=== PATIENT | female | born 1965 | race Caucasian/White ===

== ENCOUNTER → 2023-09-18 10:22 | Outpatient (CLI) | payer OTHER, SELFPAY ==
--- NOTE | 2023-09-18 10:24 | DI.RAD.S_ITS ---
PROCEDURE: XR KNEE LT 3V INDICATIONS: Left knee pain TECHNIQUE: 3 views of the knee were acquired. COMPARISON: None. FINDINGS: Bones: No fractures or dislocations. Mild tricompartmental osteoarthritis is seen more notably in patellofemoral compartment. Slight lateral subluxation of patella is also seen. No suspicious bony lesions. Soft tissues: Moderate suprapatellar joint effusion. No suspicious soft tissue calcifications. IMPRESSION: Mild tricompartmental osteoarthritis and mild lateral patellar subluxation. Moderate suprapatellar joint effusion. No fracture or dislocation. Dictated by: Hu Marino M.D. on 09/18/2023 at 11:51 Approved by: Hu Marino M.D. on 09/18/2023 at 11:52
== END ==
PROVIDERS: Referring Provider Nurse Practitioner Family; Visit Provider Nurse Practitioner Family
DX: S86.912A Strain of unspecified muscle(s) and tendon(s) at lower leg level, left leg, initial encounter (principal); M17.12 Unilateral primary osteoarthritis, left knee; S83.012A Lateral subluxation of left patella, initial encounter; X58.XXXA Exposure to other specified factors, initial encounter
CPT/HCPCS: 73562

== ENCOUNTER → 2024-05-28 15:26 | Outpatient (CLI) | payer OTHER, SELFPAY ==
--- NOTE | 2024-05-28 15:27 | DI.MRI.S_ITS ---
PROCEDURE: MR KNEE LT WO CON INDICATIONS: derangement of left knee TECHNIQUE: Noncontrast sagittal PD fast spin echo and T2 fast spin echo with fat saturation, sagittal 3-D FLASH with fat saturation; coronal T1 spin echo and PD fast spin echo with fat saturation, and axial PD fast spin echo with fat saturation through the knee. COMPARISON: [facility] [place], CR, XR KNEE 4+ VIEWS LEFT, 09/23/2023, 9:48. FINDINGS: Image quality: Excellent. Menisci: In the medial meniscus, there is likely a horizontal oblique tear of the meniscus body. No extrusion of the medial meniscus. In the lateral meniscus, there is a horizontal tear of the posterior horn, extending to the posterior root. There is marked extrusion of the lateral meniscus body with near maceration of the medial meniscus body and the anterior horn small parameniscal cyst about the anterior horn of the lateral meniscus, measuring 7 mm overall. Cruciate ligaments: The anterior and posterior cruciate ligaments appear intact. Medial structures: The medial collateral ligament appears intact. The posterior oblique ligament, semimembranosus tendon insertions, oblique popliteal ligament, and meniscocapsular junction appear intact. Visualized portions of the pes anserinus tendons appear normal. No abnormal bursal fluid. Lateral structures: The lateral collateral ligament, long and short heads of the biceps femoris tendon appear intact. The popliteus tendon appears normal; the popliteofibular ligament appears intact. The posterosuperior and anteroinferior popliteomeniscal fascicles appear intact. The arcuate and fabellofibular ligaments appear intact, on either side of the lateral inferior geniculate artery. Iliotibial band appears normal. Anterior structures: The quadriceps tendon is unremarkable. Mild tendinosis of the patellar tendon. Hoffa's fat pad edema. Marked lateral tilt of the patella. The medial and lateral patellofemoral ligaments are intact. Bones and cartilage: There is large area of full-thickness chondral denudation in the lateral patellar facet, with mild subchondral marrow edema. High-grade chondral loss in the median ridge, and high-grade chondral irregularity in the medial patellar facet, with mild subchondral marrow edema. There is small area of full-thickness chondral loss in the superior aspect of the lateral trochlea, with mild subchondral marrow edema. Cartilage of the medial compartment is grossly well maintained. In the lateral compartment, there is large area full-thickness chondral loss in the posterior weight-bearing portion of the lateral femoral condyle, with moderate subchondral marrow edema. There is high-grade chondral loss in the lateral tibial plateau, with mild subchondral marrow edema. Mild subchondral marrow edema with cystic changes at the tibial eminence, reactive. No acute fracture. Joint space: Moderate knee effusion with synovitis. Small popliteal cyst. Popliteal vasculature is unremarkable. No intra-articular body. IMPRESSION: 1. Likely tear of the medial meniscus. 2. Extensive tear of the lateral meniscus. 3. Moderate to severe chondrosis of the patellofemoral compartment, and severe chondrosis of the lateral compartment, with associated marrow edema. 4. Moderate knee effusion with synovitis. Dictated by: Dominga Sainz M.D. on 05/28/2024 at 17:18 Approved by: Dominga Sainz M.D. on 05/28/2024 at 17:29
== END ==
LOC: MRI 15:26
PROVIDERS: Referring Provider Orthopaedic Surgery Foot and Ankle Surgery; Visit Provider Orthopaedic Surgery Foot and Ankle Surgery
DX: S83.282A Other tear of lateral meniscus, current injury, left knee, initial encounter (principal); M22.42 Chondromalacia patellae, left knee; M25.462 Effusion, left knee; M65.98 Unspecified synovitis and tenosynovitis, other site; M71.22 Synovial cyst of popliteal space [Baker], left knee; M23.92 Unspecified internal derangement of left knee
CPT/HCPCS: 73721

== ENCOUNTER 2024-09-27 20:49 | Emergency (ER) | payer OTHER, SELFPAY ==
[2024-09-27 21:01] VITALS: BP 127/84; PULSE 94; RESP 18; TEMP 36.3; O2SAT 97; BMI 26.5
--- NOTE | 2024-09-27 21:37 | PC.NURSE ---
spoke with pt and pt's , pt wanted to go home stating she was just tired and wanted to get some rest. The fact that she was really going to need some sutures was stressed. pt stated she would return in the am for sutures. Discussed with pt and pt's the s/s of concussion and the need to return sooner for any problems. understanding was verbalized. pt stated she would return in the am. pt aao x 3 ambulates without difficulty
== END 2024-09-27 21:41 | disposition left against medical advice (07) ==
PROVIDERS: Emergency Provider Student in an Organized Health Care Education/Training Program
CPT/HCPCS: 99281

== ENCOUNTER 2024-09-28 10:12 | Emergency (ER) | payer OTHER, SELFPAY ==
[2024-09-28 10:15] VITALS: BP 195/100; PULSE 85; RESP 13; TEMP 36.8; O2SAT 99; BMI 26.5
--- NOTE | 2024-09-28 11:44 | ED_ITS ---
HPI - Fall General Chief Complaint: Fall Stated Complaint: Back for stitches on left eye Time Seen by Provider: 09/28/24 10:41 Source: patient Mode of arrival: Ambulatory History of Present Illness HPI Narrative: patient is a 59-year-old female presenting today after fall yesterday. Reports that she was at a social event had half a glass of wine stumbled and fell last night. She has a laceration above her left eye from her glasses. She was here last night but too many people and ultimate. Denies loss of consciousness blood thinners felt nauseous this morning but no vomiting. She was extremely shaky and has tremors today. Reports that she was extremely nervous. Says she at most drinks 3 glasses of wine couple days a week. Denies any history of alcohol withdrawal she reports that she was extremely nervous and anxious about pain. Has significant left periorbital contusion. Related Data Home Medications Medication Instructions Recorded Confirmed lisinopril 20 mg tablet 20 mg PO DAILY 09/26/24 09/26/24 Previous Rx's Medication Instructions Recorded sulfamethoxazole 800 1 tab PO BID 7 days #14 tabs 09/26/24 mg-trimethoprim 160 mg tablet (Bactrim DS) Allergies Allergy/AdvReac Type Severity Reaction Status Date / Time No Known Drug Allergies Allergy Verified 09/28/24 10:15 Patient History Social History Smoking Status: Unknown if ever smoked Smoking Status: Unknown if ever smoked Exam Initial Vital Signs Initial Vital Signs: Vital Signs Temperature 98.2 F 09/28/24 10:15 Pulse Rate 85 09/28/24 10:15 Respiratory Rate 13 09/28/24 10:15 Blood Pressure 195/100 H 09/28/24 10:15 Pulse Oximetry 99 09/28/24 10:15 Oxygen Delivery Method Room Air 09/28/24 10:15 GENERAL: Alert shaking 59-year-old female HEENT: Head atraumatic,EOMI, pupils reactive, significant left eye periorbital contusion swelling but able to open eye completely above left eye is a 3 cm laceration there was some gapping no active bleeding face symmetric, moist mucous membranes CARDIOVASCULAR: Regular rate and rhythm without murmurs, rubs or gallops. RESPIRATORY: Breath sounds equal bilaterally, no wheezes rales or rhonchi. ABDOMEN: Soft, nontender. Normoactive bowel sounds all 4 quadrants. No guarding or rebound. EXTREMITIES: Normal range of motion, no clubbing or edema. Neurovascularly intact NEUROLOGICAL: Alert and oriented x4.Normal gait and speech. Cranial nerves II through XII grossly intact. Resting tremor SKIN: Warm, dry, no laceration, no petechiae, no rashes or lesions. Procedures Laceration Repair Laceration 1: Site: face Side (If applicable): left Size (cm): 3 Description: linear Depth: simple, single layer Skin layer closed with: steri-strips Course Orders Ordered: ED Orders 09/28/24 11:49 CT cervical spine wo con Stat CT facial bones wo con Stat CT head/brain wo con Stat XR hip w pel if done RT 2V Stat Discontinued Medications Lorazepam (Lorazepam 0.5 Mg Tablet) 1 mg PO NOW ONE Stop: 09/28/24 11:50 Last Admin: 09/28/24 11:54 Dose: 1 mg Documented By: ANASTASIA Tetanus/Diphtheria Toxoids (Tetanus Diphtheria Toxoids 0.5 Ml Vial) 0.5 ml IM .ONCE ONE Stop: 09/28/24 12:51 Last Admin: 09/28/24 13:07 Dose: 0.5 ml Documented By: MELITON Vital Signs Vital signs: Vital Signs - 8 hr 09/28/24 10:15 09/28/24 12:21 09/28/24 12:22 Temperature 98.2 F Pulse Rate 85 74 Respiratory Rate 13 Blood Pressure 195/100 H 137/89 Pulse Oximetry 99 96 Oxygen Delivery Method Room Air 09/28/24 13:16 09/28/24 13:17 09/28/24 13:17 Temperature Pulse Rate 77 Respiratory Rate Blood Pressure 138/72 Pulse Oximetry 96 95 Oxygen Delivery Method Room Air Room Air MDM - Fall Imaging Data CT scan - head: Radiologist's Impression: PROCEDURE: CT HEAD/BRAIN WO CON INDICATIONS: fall last night TECHNIQUE: Noncontrast 4.5 mm thick angled axial sections acquired from the foramen magnum to the vertex, with coronal and sagittal reformats. For radiation dose reduction, the following was used: automated exposure control, adjustment of mA and/or kV according to patient size. COMPARISON: None. FINDINGS: Image quality: Diagnostic. CSF spaces: Basal cisterns are patent. No extra-axial fluid collections. The ventricles are symmetric in size and shape. Brain: No acute intracranial hemorrhage or mass effect. There is cerebral volume loss for age, with resultant ventricular and sulcal prominence. There are periventricular and deep white matter chronic small vessel ischemic changes. There is intracranial internal carotid artery atherosclerosis. Skull and face: Facial CT dictated separately. A few versus foci of subcutaneous gas are seen in the left supraorbital region possibly related to a laceration. Calvarium and visualized facial bones appear intact, without suspicious lesions. Sinuses: Visualized sinuses and mastoids are clear. IMPRESSION: 1. No acute intracranial pathology. 2. [id number] cranial air vascular ischemic changes and generalized parenchymal volume loss. Approved by: Niels Fernandez M.D. on 09/28/2024 at 12:32 CT - cervical spine: Radiologist's Impression: PROCEDURE: CT CERVICAL SPINE WO CON INDICATIONS: fall TECHNIQUE: Noncontrast 3 mm thick sections acquired from the skull base to the T4 level. Sagittal and coronal reformats were then constructed. For radiation dose reduction, the following was used: automated exposure control, adjustment of mA and/or kV according to patient size. COMPARISON: None. FINDINGS: Image quality: Excellent. Bones: No acute fractures or dislocations. Visualized superior ribs are intact. Straightening of the normal cervical lordosis. Grade 1 anterolisthesis at C2-3 and C3-4. Multilevel disc space narrowing and degenerative endplate changes. Multilevel uncovertebral joint and facet hypertrophy. Soft tissues: Prevertebral soft tissues are normal in thickness. No paravertebral hematomas. No apical pneumothoraces. IMPRESSION: No acute displaced fracture or traumatic subluxation. Approved by: Niels Fernandez M.D. on 09/28/2024 at 12:38 ct facial: Radiologist's Impression: PROCEDURE: CT FACIAL BONES WO CON INDICATIONS: fall left periorbital contusion TECHNIQUE: Noncontrast 2.5 mm thick axial images acquired from the mandible through the frontal sinuses, with coronal and sagittal reformatting. For radiation dose reduction, the following was used: automated exposure control, adjustment of mA and/or kV according to patient size. COMPARISON: None. FINDINGS: Image quality: Excellent. Bones and teeth: Mild displaced fracture of the inferior left orbital wall measuring approximately 13 x 14 mm with up to 3 mm depression. No entrapment of the inferior rectus muscle is seen. Orbital chan are intact. Sinus chan show no fracture or deformity. Nasal bones and septum are intact. Visualized portions of the mandible demonstrate no fractures or subluxation. Zygomatic arches are intact. Pterygoid plates are intact. Visualized portions of the skull base and auditory canals are intact. Sinuses: Mild mucosal thickening and fluid in the left maxillary sinus. The remaining paranasal sinuses and the mastoid air cells are clear. Soft tissues: Soft tissue edema in the left periorbital region. A few foci of gas are seen. No orbital hematoma. No enlarged lymph nodes. No soft tissue lacerations or debris. Vascular: Visualized vascular structures appear normal in the absence of contrast. Bony vascular foramina and canals are intact. IMPRESSION: Mildly depressed fracture of the left inferior orbital wall. No inferior rectus muscle entrapment is seen. No additional facial fracture. Approved by: Niels Fernandez M.D. on 09/28/2024 at 12:37 Extremity x-ray #1: Radiologist's Impression: PROCEDURE: XR HIP W PEL IF DONE RT 2V INDICATIONS: pain fall TECHNIQUE: AP pelvis with lateral view of the right hip. COMPARISON: None. FINDINGS: Bones: No acute fractures or dislocations. Pelvic ring appears intact. No suspicious bony lesions. Soft tissues: The visualized bowel gas pattern is normal. No suspicious soft tissue calcifications. IMPRESSION: No acute osseous abnormality. If symptoms persist or if there is continued clinical concern, cross-sectional imaging such as MRI or CT may be helpful for further evaluation. Approved by: Niels Fernandez M.D. on 09/28/2024 at 12:29 MDM Narrative Medical decision making narrative: Patient is 59-year-old female who presents today after ground level fall last evening. She has a obvious soft eyebrow laceration. It has been open now for greater than 12 hours. At this time we will not suture it but it was Steri- Strips with Mastisol.. Imaging does show mildly depressed fracture of left inferior orbital wall no evidence of entrapment on exam or on CT. She was extremely shaky I do have concerns about alcohol withdrawal. She was adamant that she is only nervous. She was given 1 mg of Ativan p.o. with her nerves. She reports that it does help in the shaking did not begin again until she was to receive her tetanus shot. I discussed at length with her about risk of alcohol withdrawal seizures and recommended detox however she is adamant it was not alcohol withdrawal. It she feels ready able to go. Stable gait. Discharge Plan Departure Patient Disposition: Home Clinical Impression: Orbital floor (blow-out), closed fracture, Laceration of eyebrow, left Instructions: DI for Laceration Repair-Skin Closure Strips, DI for Orbital Fracture Activity Restrictions/Additional Instructions: *You have been diagnosed with orbital fracture *What to do: At this time do not blow your nose, dab only. you will need to follow up with ENT, should heal easily on its own *Continue to take medications as directed *Follow up with your primary care provider in 2-3 days or call [phone] *Return to ER if you should have redness swelling drainage blurry vision increasing shaking [or] any new, worsening or concerning symptoms Prescriptions: No Action lisinopril 20 mg tablet 20 mg PO DAILY sulfamethoxazole-trimethoprim [Bactrim DS] 800-160 mg tablet 1 tab PO BID 7 Days Qty: 14 0RF Referrals: Renato Ferrell MD [Physician] - Stand Alone Forms: Patient Portal/API/Survey
--- NOTE | 2024-09-28 11:49 | DI.CT.S_ITS ---
PROCEDURE: CT FACIAL BONES WO CON INDICATIONS: fall left periorbital contusion TECHNIQUE: Noncontrast 2.5 mm thick axial images acquired from the mandible through the frontal sinuses, with coronal and sagittal reformatting. For radiation dose reduction, the following was used: automated exposure control, adjustment of mA and/or kV according to patient size. COMPARISON: None. FINDINGS: Image quality: Excellent. Bones and teeth: Mild displaced fracture of the inferior left orbital wall measuring approximately 13 x 14 mm with up to 3 mm depression. No entrapment of the inferior rectus muscle is seen. Orbital chan are intact. Sinus chan show no fracture or deformity. Nasal bones and septum are intact. Visualized portions of the mandible demonstrate no fractures or subluxation. Zygomatic arches are intact. Pterygoid plates are intact. Visualized portions of the skull base and auditory canals are intact. Sinuses: Mild mucosal thickening and fluid in the left maxillary sinus. The remaining paranasal sinuses and the mastoid air cells are clear. Soft tissues: Soft tissue edema in the left periorbital region. A few foci of gas are seen. No orbital hematoma. No enlarged lymph nodes. No soft tissue lacerations or debris. Vascular: Visualized vascular structures appear normal in the absence of contrast. Bony vascular foramina and canals are intact. IMPRESSION: Mildly depressed fracture of the left inferior orbital wall. No inferior rectus muscle entrapment is seen. No additional facial fracture. Approved by: Niels Fernandez M.D. on 09/28/2024 at 12:37
--- NOTE | 2024-09-28 11:49 | DI.CT.S_ITS ---
PROCEDURE: CT CERVICAL SPINE WO CON INDICATIONS: fall TECHNIQUE: Noncontrast 3 mm thick sections acquired from the skull base to the T4 level. Sagittal and coronal reformats were then constructed. For radiation dose reduction, the following was used: automated exposure control, adjustment of mA and/or kV according to patient size. COMPARISON: None. FINDINGS: Image quality: Excellent. Bones: No acute fractures or dislocations. Visualized superior ribs are intact. Straightening of the normal cervical lordosis. Grade 1 anterolisthesis at C2-3 and C3-4. Multilevel disc space narrowing and degenerative endplate changes. Multilevel uncovertebral joint and facet hypertrophy. Soft tissues: Prevertebral soft tissues are normal in thickness. No paravertebral hematomas. No apical pneumothoraces. IMPRESSION: No acute displaced fracture or traumatic subluxation. Approved by: Niels Fernandez M.D. on 09/28/2024 at 12:38
--- NOTE | 2024-09-28 11:49 | DI.CT.S_ITS ---
PROCEDURE: CT HEAD/BRAIN WO CON INDICATIONS: fall last night TECHNIQUE: Noncontrast 4.5 mm thick angled axial sections acquired from the foramen magnum to the vertex, with coronal and sagittal reformats. For radiation dose reduction, the following was used: automated exposure control, adjustment of mA and/or kV according to patient size. COMPARISON: None. FINDINGS: Image quality: Diagnostic. CSF spaces: Basal cisterns are patent. No extra-axial fluid collections. The ventricles are symmetric in size and shape. Brain: No acute intracranial hemorrhage or mass effect. There is cerebral volume loss for age, with resultant ventricular and sulcal prominence. There are periventricular and deep white matter chronic small vessel ischemic changes. There is intracranial internal carotid artery atherosclerosis. Skull and face: Facial CT dictated separately. A few versus foci of subcutaneous gas are seen in the left supraorbital region possibly related to a laceration. Calvarium and visualized facial bones appear intact, without suspicious lesions. Sinuses: Visualized sinuses and mastoids are clear. IMPRESSION: 1. No acute intracranial pathology. 2. [id number] cranial air vascular ischemic changes and generalized parenchymal volume loss. Approved by: Niels Fernandez M.D. on 09/28/2024 at 12:32
--- NOTE | 2024-09-28 11:49 | DI.RAD.S_ITS ---
PROCEDURE: XR HIP W PEL IF DONE RT 2V INDICATIONS: pain fall TECHNIQUE: AP pelvis with lateral view of the right hip. COMPARISON: None. FINDINGS: Bones: No acute fractures or dislocations. Pelvic ring appears intact. No suspicious bony lesions. Soft tissues: The visualized bowel gas pattern is normal. No suspicious soft tissue calcifications. IMPRESSION: No acute osseous abnormality. If symptoms persist or if there is continued clinical concern, cross-sectional imaging such as MRI or CT may be helpful for further evaluation. Approved by: Niels Fernandez M.D. on 09/28/2024 at 12:29
[2024-09-28] MEDS: LORazepam 0.5 MG TABLET 1 MG PO (11:54)
[2024-09-28 12:21] VITALS: PULSE 74; O2SAT 96
[2024-09-28 12:22] VITALS: BP 137/89
[2024-09-28] MEDS: TETANUS DIPHTHERIA TOXOIDS 0.5 ML VIAL IM (13:07)
[2024-09-28 13:16] VITALS: O2SAT 96
[2024-09-28 13:17] VITALS: BP 138/72; PULSE 77; O2SAT 95
== END 2024-09-28 13:27 | disposition home or self-care (01) ==
PROVIDERS: Emergency Provider Emergency Medicine
DX: S02.32XA Fracture of orbital floor, left side, initial encounter for closed fracture (principal); S01.112A Laceration without foreign body of left eyelid and periocular area, initial encounter; W18.30XA Fall on same level, unspecified, initial encounter; Z23 Encounter for immunization
CPT/HCPCS: 70450; 70486; 72125; 73502; 90471; 90714; 99283; 99284

== ENCOUNTER → 2024-10-30 10:59 | Outpatient (CLI) | payer OTHER, SELFPAY | LOC: WC 11-06 11:01 | PROVIDERS: Referring Provider Nurse Practitioner Family; Visit Provider Surgery | DX: S81.011A Laceration without foreign body, right knee, initial encounter (principal); B99.9 Unspecified infectious disease; L03.124 Acute lymphangitis of left upper limb; F40.248 Other situational type phobia; L53.8 Other specified erythematous conditions; I10 Essential (primary) hypertension | CPT/HCPCS: 11042; 99203; 99213 ==

== ENCOUNTER → 2024-11-06 11:01 | Outpatient (CLI) | payer OTHER, SELFPAY | PROVIDERS: Referring Provider Nurse Practitioner Family; Visit Provider Surgery | DX: Z87.2 Personal history of diseases of the skin and subcutaneous tissue (principal); S81.011D Laceration without foreign body, right knee, subsequent encounter | CPT/HCPCS: 99213 ==

== ENCOUNTER → 2025-06-12 07:56 | Outpatient (CLI) | payer OTHER, SELFPAY ==
[2025-06-12 08:58] LABS: Influenza A - CEPHEID Flu A NEGATIVE (NEGATIVE); Influenza B - CEPHEID Flu B NEGATIVE (NEGATIVE)
[2025-06-12 09:03] LABS: COVID-19 CEPHEID 4-PLEX PCR Negative (Negative)
== END ==
PROVIDERS: Visit Provider Nurse Practitioner Family
DX: R05.1 Acute cough (principal)
CPT/HCPCS: 87637